=== PATIENT | male | born 1975 | race Caucasian/White ===

== ENCOUNTER 2022-03-16 03:52 | Emergency (ER) | payer MEDICAID, SELFPAY ==
[2022-03-16] VITALS (10 sets, daily range): BP systolic 112–146; BP diastolic 65–97; PULSE 50–83; RESP 18–20; TEMP 36.6–36.7; O2SAT 94–98; BMI 24.3
--- NOTE | 2022-03-16 04:10 | CT_ITS ---
FINAL REPORT CLINICAL HISTORY: RLQ and RUQ pain COMPARISON: March 03, 2022 FINDINGS: CT OF THE ABDOMEN AND PELVIS WITH CONTRAST Axial CT images of the abdomen and pelvis were obtained after the administration of intravenous contrast. Coronal reformatted images were also obtained and reviewed.This study was performed with techniques to keep radiation doses as low as reasonably achievable (ALARA). Individualized dose reduction techniques using automated exposure control or adjustment of mA and/or kV according to the patient's size were employed. Abdomen: There is a 9 mm ground-glass nodule in the left lower lobe.. The heart is normal in size. The liver has an unremarkable appearance, without evidence of mass or biliary ductal dilatation. The gallbladder is present. The spleen is unremarkable. No adrenal mass is present. The pancreas has an unremarkable appearance. The kidneys are normal, without evidence of mass or hydronephrosis. The aorta is normal in caliber. There is no free fluid or adenopathy. There is a small umbilical hernia containing fat only. Pelvis: Postoperative changes are seen involving the right posterior acetabulum. The appendix is normal. The urinary bladder is moderately distended. No inflammatory process is seen. There is no evidence of mass or adenopathy. There is a moderate to large amount of retained stool. There is no evidence of bowel obstruction. There are small inguinal hernias containing fat only. IMPRESSION: 9 mm left lower lobe ground-glass nodule. Moderate to large amount of retained stool. Normal appendix. Moderately distended urinary bladder. Reviewed, Interpreted and Dictated by Lc Samuel III, MD Transcribed by Lawrence Terrell Authenticated and [facility]
[2022-03-16 04:19] LABS: Basophils # 0.2 K/mm3 (0-0.2); Basophils % 1.6 % (0.1-2.0); Eosinophils # 0.5 K/mm3 (0.0-0.4); Eosinophils % 4.5 % (0.1-12.0); Hematocrit 56.6 % (42.0-52.0); Lymphocytes # 1.8 K/mm3 (0.7-4.5); Lymphocytes % 17.6 % (10-50); Mean Corpuscular HGB Conc 33.2 g/dL (31.8-35.4); Mean Corpuscular Hemoglobin 31.1 pg (27.0-31.2); Mean Corpuscular Volume 93.6 fl (80-94); Mean Platelet Volume 8.6 fl (7.4-10.4); Monocytes # 0.6 K/mm3 (0.1-1.0); Monocytes % 6.2 % (1.7-9.3); Neutrophils # 7.3 K/mm3 (1.8-7.8); Neutrophils % 70.1 % (37.0-80.0); Platelet Count 219 K/mm3 (142-424); Red Blood Count 6.05 M/mm3 (4.60-6.20); White Blood Count 10.4 K/mm3 (4.8-10.8)
[2022-03-16 04:24] LABS: Chloride 91 mmol/L (98-107); Hemoglobin 18.8 g/dL (14.1-18.0); Potassium 4.4 mmoL/L (3.5-5.1); Sodium 135 mmol/L (136-145)
--- NOTE | 2022-03-16 04:24 | HMH.EDABDPAI ---
Discharge Plan Disposition Patient Disposition: Home, Self-Care Prescriptions Prescriptions: New pantoprazole [Protonix] 40 mg tablet,delayed release (DR/EC) 40 mg PO DAILY Qty: 30 0RF No Action atorvastatin 40 mg Tablet 40 mg PO HS metformin 1,000 mg Tablet 1,000 mg PO BID lisinopril 10 mg Tablet 10 mg PO DAILY Referrals Follow up/Referrals: Provider,Referral, MD [Primary Care Provider] - See instructions Clinical Impressions Clinical Impression: Abdominal pain, Diabetes mellitus Instructions Patient Instructions: DI for Acute Abdominal Pain Discharge ED Provider: Billy Chandra Abdominal Pain HPI General Chief Complaint: Abdominal Pain Stated Complaint: Stomach Pain Time Seen by Provider: 03/16/22 04:25 Mode of Arrival: Ambulatory Source of Information: Patient, Significant Other and Medical Record Limitations: No Limitations Description of Symptoms (Recalled from ER Triage Doc. by RN): Pt reports RUQ and RLQ abd pain that started early today. Pt describes pain as cramping and stabbing that is constant and rates his pain a 9 out of 10 at its worst. Pt denies N/V/D, fevers, changes in bowel or bladder. History of Present Illness HPI narrative: pt with upper abd pain with nausea w/o blood in stool or melena - pt with pain and seen at [facility] in 03/03- does use etoh and is diabetic - not taking lithium and has not been compliant with meds complaint: abdominal pain Onset (ago): hour(s) Consistency: intermittent Location: RUQ and epigastric Severity: moderate Associated symptoms: nausea Related Data Home Medications Medication Instructions Recorded Confirmed atorvastatin 40 mg tablet 40 mg PO HS Cholesterol 03/16/22 03/16/22 lisinopril 10 mg tablet 10 mg PO DAILY High blood pressure 03/16/22 03/16/22 metformin 1,000 mg tablet 1,000 mg PO BID Diabetes 03/16/22 03/16/22 Previous Rx's Medication Instructions Recorded pantoprazole 40 mg tablet,delayed 40 mg PO DAILY #30 tabs 03/16/22 release (Protonix) Allergies Allergy/AdvReac Type Severity Reaction Status Date / Time No Known Allergies Allergy Verified 03/16/22 04:07 PFSH PFSH Social History Smoking Status: Current every day smoker alcohol intake: current current occupational status: employed Travel in the last 8 weeks: None ROS Obtained: Yes All systems reviewed & no additional complaints except as documented Physical Exam General General appearance: alert Head Head exam: normocephalic Eye Eye exam: Present PERRL and EOMI; Absent scleral icterus or jaundice ENT ENT exam: Present mucous membranes moist Neck Neck exam: Present trachea midline Respiratory Respiratory exam: Present normal lung sounds bilaterally; Absent respiratory distress Cardiovascular Cardiovascular exam: Present regular rate and systolic murmur Abdominal Exam Abdominal exam: Present soft and tenderness; Absent guarding, rebound or rigidity Abdominal tenderness: Present epigastrium and moderate Extremities Exam Extremities exam: Present full ROM Neurological Exam Neurological exam: Present alert, oriented X3 and CN II-XII intact Psychiatric Psychiatric exam: Present normal affect Skin Skin exam: Absent rash Medical Decision Making Medical Records Medical records reviewed: Yes I reviewed the patient's medical records. Vadim Inquiry Pt receiving controlled substance: No Vital Signs: 03/16/22 04:03 03/16/22 04:30 03/16/22 05:00 Temperature 97.8 F Temperature Source Oral Pulse Rate 83 57 L Pulse Rate [Right Radial] 76 Respiratory Rate 18 Blood Pressure 125/73 128/65 Blood Pressure [Right Arm] 126/71 Blood Pressure Mean Blood Pressure Mean [Right Arm] 89 Blood Pressure Source [Right Arm] Automatic Cuff Blood Pressure Position [Right Arm] Sitting 02 Sat by Pulse Oximetry 95 96 94 L Oxygen Delivery Method Room Air 03/16/22 05:30 03/16/22 05:58 03/16/22 06:30 Tempera
[2022-03-16 04:27] LABS: Alanine Aminotransferase 45 U/L (12-78); Alkaline Phosphatase 215 U/L (38-126); Amylase 64 U/L (30-110); Anion Gap 19.4 mEq/L (5-15); Aspartate Amino Transferase 45 U/L (17-59); Bilirubin,Total 0.7 mg/dl (0.2-1.3); Blood Urea Nitrogen 19 mg/dl (9-20); Calcium 9.8 mg/dl (8.4-10.2); Carbon Dioxide 29 mmol/L (22.0-30.0); Creatinine Clearance Estimated 141 mL/min (50-200); Estimated Glomerular Filt Rate 120 ml/min (>60); GFR (African American) 146 ML/MIN (>60); Lipase 156 U/L (23-300)
[2022-03-16 04:28] LABS: Albumin Level 5.3 g/dl (3.5-5.0); Albumin/Globulin Ratio 1.6 (1.1-1.8); Globulin 3.3 g/dL (1.3-3.2); Total Protein,Serum 8.6 g/dl (6.3-8.2)
[2022-03-16 04:33] LABS: C-Reactive Protein 3.9 mg/L (0-4)
[2022-03-16 04:34] LABS: Ethyl Alcohol < 10 mg/dl (0-10)
[2022-03-16 04:36] LABS: Glucose 580 mg/dl (74-100)
--- NOTE | 2022-03-16 04:36 | PC.NURSE ---
Critical glucose reported to Prateek at this time of 580. Awaiting new orders
[2022-03-16 04:58] LABS: Acetone, Serum (Rapid) None Detected (None Detect)
[2022-03-16 05:16] LABS: Hemoglobin A1C 11.4 % (4.0-6.0)
[2022-03-16 05:45] LABS: Troponin I < 0.01 ng/ml (0.00-0.034)
[2022-03-16 05:53] LABS: Microscopic, Urine URINE MICROSCOPIC (MICROSCOPIC)
[2022-03-16 05:57] LABS: Appearance,Urine CLEAR (Clear); Bilirubin,Urine Negative (Negative); Blood, Urine Negative (Negative); Color,Urine YELLOW (Yellow); Glucose,Urine (UA) 3+ (Negative); Ketones,Urine Negative (Negative); Leukocyte Esterase,Urine Negative (Negative); Nitrate,Urine Negative (Negative); PH,Urine 6.5 (5.0-8.5); Protein,Urine Negative (Negative); Specific Gravity, Urine <= 1.005 (1.005-1.030); Urobilinogen,Urine 0.2 EU/dl (0.2)
[2022-03-16 06:00] LABS: Erythrocyte Sedimentation Rate 1 mm/hr (0-15)
[2022-03-16 06:23] LABS: Bacteria,Urine Trace /lpf; WBC,Urine Occasional #/hpf (0-3)
--- NOTE | 2022-03-16 07:35 | PC.NURSE ---
FSBS 392, PT UPDATED ON POC. NO NEEDS AT THIS TIME
[2022-03-16 07:41] LABS: POC Glucose,Bedside 392 (70-110)
--- NOTE | 2022-03-16 08:34 | PC.NURSE ---
DR. SULLIVAN AT BEDSIDE TO DISCUSS POC AND DISCHARGE
== END 2022-03-16 08:40 | disposition home or self-care (01) ==
PROVIDERS: Emergency Provider Emergency Medicine
DX: R10.11 Right upper quadrant pain (principal); R10.31 Right lower quadrant pain; R10.13 Epigastric pain; R11.0 Nausea; E11.9 Type 2 diabetes mellitus without complications; F17.200 Nicotine dependence, unspecified, uncomplicated; Z79.84 Long term (current) use of oral hypoglycemic drugs; Z79.899 Other long term (current) drug therapy
CPT/HCPCS: 74177; 80053; 81001; 82009; 82150; 82962; 83036; 83690; 84484; 85025; 85651; 86140; 96361; 96374; 96375; 99285; Q9967

== ENCOUNTER 2022-04-06 21:20 | Emergency (ER) | payer MEDICAID, SELFPAY ==
[2022-04-06 21:22] VITALS: BP 137/91; PULSE 88; RESP 16; TEMP 37; O2SAT 97; BMI 25.2
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
[2022-04-06 22:00] VITALS: BP 119/68; PULSE 88; O2SAT 96
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
[2022-04-06 23:01] LABS: INR 0.86 (0.9-1.1); Prothrombin Time 9.4 seconds (10.1-12.5)
[2022-04-06 23:07] LABS: Basophils # 0.1 K/mm3 (0-0.2); Basophils % 1.2 % (0.1-2.0); Eosinophils # 0.4 K/mm3 (0.0-0.4); Eosinophils % 4.1 % (0.1-12.0); Hematocrit 51.7 % (42.0-52.0); Hemoglobin 17.2 g/dL (14.1-18.0); Lymphocytes # 1.8 K/mm3 (0.7-4.5); Lymphocytes % 18.1 % (10-50); Mean Corpuscular HGB Conc 33.4 g/dL (31.8-35.4); Mean Corpuscular Hemoglobin 30.6 pg (27.0-31.2); Mean Corpuscular Volume 91.6 fl (80-94); Mean Platelet Volume 8.9 fl (7.4-10.4); Monocytes # 0.5 K/mm3 (0.1-1.0); Monocytes % 4.9 % (1.7-9.3); Neutrophils % 71.7 % (37.0-80.0); Platelet Count 253 K/mm3 (142-424); Red Blood Count 5.64 M/mm3 (4.60-6.20); Red Cell Distribution Width 13.3 % (11.5-17.5); White Blood Count 9.7 K/mm3 (4.8-10.8)
[2022-04-06 23:10] LABS: Chloride 97 mmol/L (98-107); Sodium 133 mmol/L (136-145)
[2022-04-06 23:12] LABS: Blood Urea Nitrogen 13 mg/dl (9-20); Creatinine Clearance Estimated 146 mL/min (50-200); Estimated Glomerular Filt Rate 120 ml/min (>60); GFR (African American) 146 ML/MIN (>60)
[2022-04-06 23:13] LABS: Alanine Aminotransferase 45 U/L (12-78); Albumin Level 4.3 g/dl (3.5-5.0); Albumin/Globulin Ratio 1.7 (1.1-1.8); Alkaline Phosphatase 182 U/L (38-126); Aspartate Amino Transferase 47 U/L (17-59); Bilirubin,Total 0.3 mg/dl (0.2-1.3); Calcium 8.5 mg/dl (8.4-10.2); Carbon Dioxide 23 mmol/L (22.0-30.0); Globulin 2.5 g/dL (1.3-3.2); Lipase 332 U/L (23-300); Total Protein,Serum 6.8 g/dl (6.3-8.2)
[2022-04-06 23:18] LABS: Glucose 542 mg/dl (74-100)
[2022-04-06 23:25] LABS: Troponin I < 0.01 ng/ml (0.00-0.034)
[2022-04-06 23:30] LABS: VBG Base Excess -5.7 mmol/L (-2.4-2.3); VBG HCO3 18.2 mmol/L (23-30); VBG Oxygen Saturation 99.1 % (50-70); VBG PCO2 26.2 mmol/L (35-51); VBG PH 7.46 mmol/L (7.31-7.41)
[2022-04-07 01:30] LABS: POC Glucose,Bedside 359 (70-110)
[2022-04-07 02:00] VITALS: BP 119/68; PULSE 88; RESP 16; TEMP 37; O2SAT 98; BMI 25.2
== END 2022-04-07 02:00 | disposition home or self-care (01) ==
PROVIDERS: Emergency Provider Emergency Medicine
DX: M25.511 Pain in right shoulder (principal); V49.9XXA Car occupant (driver) (passenger) injured in unspecified traffic accident, initial encounter; E11.65 Type 2 diabetes mellitus with hyperglycemia; Z79.84 Long term (current) use of oral hypoglycemic drugs; Z79.899 Other long term (current) drug therapy
CPT/HCPCS: 36415; 70450; 70496; 70498; 71045; 71275; 72125; 72128; 72131; 73000; 73030; 74174; 80053; 82803; 82962; 83690; 84484; 85025; 85610; 85730; 86850; 96365; 96366; 96375; 99285; J2405; Q9967

== ENCOUNTER 2023-03-12 19:19 | Emergency (ER) | payer MEDICAID, SELFPAY ==
[2023-03-12 19:21] VITALS: BP 149/80; PULSE 81; RESP 20; TEMP 36.8; O2SAT 99; BMI 23.6
--- NOTE | 2023-03-12 19:32 | CT_ITS ---
PROCEDURE INFORMATION: Exam: CT Head Without Contrast Exam date and time: 03/12/2023 7:39 PM Age: 47 years old Clinical indication: Injury or trauma; Fall; Additional info: Fall, facial pain/injury, jaw malocclusion TECHNIQUE: Imaging protocol: Computed tomography of the head without contrast. Radiation optimization: All CT scans at this facility use at least one of these dose optimization techniques: automated exposure control; mA and/or kV adjustment per patient size (includes targeted exams where dose is matched to clinical indication); or iterative reconstruction. REPORTING DATA: Count of CT and Cardiac NM exams in prior 12 months: This patient has received 9 known CTs and 0 known cardiac nuclear medicine studies in the 12 months prior to the current study. COMPARISON: CT HEAD/BRAIN WO CON 04/06/2022 11:04 PM FINDINGS: Brain: No acute intracranial hemorrhage, midline shift or mass effect. Cerebral ventricles: Similar asymmetric prominence of the right lateral ventricle. Paranasal sinuses: Visualized sinuses are unremarkable. No fluid levels. Mastoid air cells: Minimal chronic right mastoid effusion. 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 Bones/joints: Unremarkable. No acute fracture. Soft tissues: Small midline parietal vertex scalp contusion. IMPRESSION: Small midline parietal vertex scalp contusion. No acute intracranial findings or calvarial fracture.
--- NOTE | 2023-03-12 19:32 | CT_ITS ---
PROCEDURE INFORMATION: Exam: CT Cervical Spine Without Contrast Exam date and time: 03/12/2023 7:44 PM Age: 47 years old Clinical indication: Neck pain; Additional info: Fall, facial pain/injury, jaw malocclusion TECHNIQUE: Imaging protocol: Computed tomography of the cervical spine without contrast. Radiation optimization: All CT scans at this facility use at least one of these dose optimization techniques: automated exposure control; mA and/or kV adjustment per patient size (includes targeted exams where dose is matched to clinical indication); or iterative reconstruction. REPORTING DATA: Count of CT and Cardiac NM exams in prior 12 months: This patient has received 9 known CTs and 0 known cardiac nuclear medicine studies in the 12 months prior to the current study. COMPARISON: CT CERVICAL SPINE WO CON 04/06/2022 11:06 PM FINDINGS: Bones/joints: Cervical vertebrae normal in height. Reversal of normal cervical lordosis centered at C5-C6. Maintained craniocervical junction. No acute fracture. Multilevel degenerative changes. Varying degrees of neural foraminal narrowing most severe on the right at C3-C4 and on the left at C6-C7. Minimal C4-C5, C5-C6 and C6-C7 spinal canal stenosis. Lungs: Lung apices are without acute findings. Soft tissues: Unremarkable. IMPRESSION: No acute osseous findings of the cervical spine.
--- NOTE | 2023-03-12 19:32 | CT_ITS ---
PROCEDURE INFORMATION: Exam: CT Maxillofacial Without Contrast Exam date and time: 03/12/2023 7:41 PM Age: 47 years old Clinical indication: Face pain; Additional info: Fall, facial pain/injury, jaw malocclusion TECHNIQUE: Imaging protocol: Computed tomography of the face without contrast. Radiation optimization: All CT scans at this facility use at least one of these dose optimization techniques: automated exposure control; mA and/or kV adjustment per patient size (includes targeted exams where dose is matched to clinical indication); or iterative reconstruction. REPORTING DATA: Count of CT and Cardiac NM exams in prior 12 months: This patient has received 9 known CTs and 0 known cardiac nuclear medicine studies in the 12 months prior to the current study. COMPARISON: CT HEAD/BRAIN WO CON 03/12/2023 7:39 PM FINDINGS: Orbital cavities: Orbits are normal. Globes are unremarkable. Bones/joints: No acute fracture. Paranasal sinuses: Minimal bilateral maxillary sinus mucosal thickening. No air-fluid levels. Soft tissues: Unremarkable. IMPRESSION: No acute osseous findings.
--- NOTE | 2023-03-12 19:32 | HMH.EDGENADL ---
Discharge Plan Disposition Patient Disposition: Home, Self-Care Condition: Good Prescriptions Prescriptions: New chlorhexidine gluconate [Peridex] 0.12 % mouthwash 15 ml buccal BID Qty: 1200 0RF No Action pantoprazole 40 mg tablet,delayed release (DR/EC) See Rx Instructions .ROUTE .COMPLEX Qty: 30 0RF Dose Instruction: TAKE 1 TABLET ORALLY DAILY Rx Instructions: TAKE 1 TABLET ORALLY DAILY atorvastatin 40 mg Tablet 40 mg PO HS metformin 1,000 mg Tablet 1,000 mg PO BID lisinopril 10 mg Tablet 10 mg PO DAILY Referrals Follow up/Referrals: Provider,Referral, MD [Primary Care Provider] - See instructions Activity Restrictions/Add. Instructions Additional Instructions/Restrictions: You were evaluated in the emergency department today. Please supervisor opening and picking your prescription for mouthwash at the pharmacy and use twice a day as prescribed. Take Tylenol and ibuprofen at home as needed for pain. Follow-up with your dentist for your injury to your tooth. Return to the emergency department for any new or worsening symptoms. Clinical Impressions Clinical Impression: Loose tooth due to trauma Laceration of labial mucosa without complication Qualifiers: Encounter type: initial encounter Qualified Code(s): S01.512A - Laceration without foreign body of oral cavity, initial encounter Discharge ED Provider: Gabriela Wooten General Adult HPI General Chief complaint: Fall Stated complaint: AO 03/11 fell facial injures Time Seen by Provider: 03/12/23 19:26 Mode of Arrival: Ambulatory Source of Information: Patient Limitations: No Limitations Description of Symptoms (Recalled from ER Triage Doc. by RN): pt states he got tripped up in the yard last night and fell from a standing position, this approx happened at 2300 and is complaining of jaw pain and has an abrasion under left eye History of Present Illness HPI narrative: This patient is a 47-year-old male with a history of hypertension and diabetes presenting to the emergency department for evaluation with concern for facial pain. He reports that last night around 11 PM, he was walking when he tripped and had a mechanical ground-level fall from standing. He landed on his face. He complains that he suffered a laceration to the inside of his left lip and also feels like his upper left central incisor is loose. He also feels jaw malocclusion when he bites down, especially on the left side. He did not lose consciousness when this happened he denies any other concerns. He denies any use of anticoagulation. He is otherwise been fine since. He only came in because family urged him to today. No other concerns noted at this time. Related Data Home Medications Medication Instructions Recorded Confirmed atorvastatin 40 mg tablet 40 mg PO HS Cholesterol 03/16/22 03/16/22 lisinopril 10 mg tablet 10 mg PO DAILY High blood pressure 03/16/22 03/16/22 metformin 1,000 mg tablet 1,000 mg PO BID Diabetes 03/16/22 03/16/22 Previous Rx's Medication Instructions Recorded pantoprazole 40 mg tablet,delayed See Rx Instructions .Route 04/12/22 release .COMPLEX #30 tabs chlorhexidine gluconate 0.12 % 15 ml buccal BID #1,200 mL 03/12/23 mouthwash (Peridex) Allergies Allergy/AdvReac Type Severity Reaction Status Date / Time No Known Allergies Allergy Verified 03/16/22 04:07 [facility] Disclaimer: The information contained in this section may have been updated after the patient was seen, as this information can be updated by other users. Social History Smoking Status: Current every day smoker alcohol intake: current current occupational status: employed Travel in the last 8 weeks: None ROS Obtained: Yes All systems reviewed & no additional complaints except as documented Physical Exam General General appearance: alert and in no apparent distress Head Head exam: other (Abr
[2023-03-12 20:53] VITALS: BP 144/94; PULSE 68; RESP 16; TEMP 36.7; O2SAT 96
== END 2023-03-12 20:56 | disposition home or self-care (01) ==
PROVIDERS: Emergency Provider Emergency Medicine
DX: S01.512A Laceration without foreign body of oral cavity, initial encounter (principal); S03.2XXA Dislocation of tooth, initial encounter; I10 Essential (primary) hypertension; E11.9 Type 2 diabetes mellitus without complications; W01.0XXA Fall on same level from slipping, tripping and stumbling without subsequent striking against object, initial encounter; F17.200 Nicotine dependence, unspecified, uncomplicated
CPT/HCPCS: 70450; 70486; 72125; 99285

== ENCOUNTER 2023-06-08 07:25 | Emergency (ER) | payer MEDICAID, SELFPAY ==
[2023-06-08 07:26] VITALS: BP 118/81; PULSE 84; RESP 18; TEMP 36.3; O2SAT 97; BMI 22.9
[2023-06-08 07:45] VITALS: BMI 22.9
--- NOTE | 2023-06-08 07:46 | ED_ITS ---
Discharge Plan Disposition Patient Disposition: Home, Self-Care Condition: Good Prescriptions Prescriptions: New insulin glargine [Lantus Solostar U-100 Insulin] 100 unit/mL (3 mL) insulin pen 20 unit SQ HS Qty: 15 0RF (DME) insulin syr/ndl U100 half colton 0.3 mL 30 gauge x 1/2 syringe See Rx Instructions .Route Qty: 100 0RF Rx Instructions: As directed ondansetron 4 mg tablet,disintegrating 4 mg PO Q6H PRN (Reason: nausea and vomiting) Qty: 30 0RF No Action pantoprazole 40 mg tablet,delayed release (DR/EC) See Rx Instructions .ROUTE .COMPLEX Qty: 30 0RF Dose Instruction: TAKE 1 TABLET ORALLY DAILY Rx Instructions: TAKE 1 TABLET ORALLY DAILY atorvastatin 40 mg Tablet 40 mg PO HS metformin 1,000 mg Tablet 1,000 mg PO BID lisinopril 10 mg Tablet 10 mg PO DAILY chlorhexidine gluconate [Peridex] 0.12 % mouthwash 15 ml buccal BID Qty: 1200 0RF Referrals Follow up/Referrals: Provider,Referral, MD [Primary Care Provider] - See instructions Clinical Impressions Clinical Impression: Hyperglycemia Diarrhea Qualifiers: Diarrhea type: unspecified type Qualified Code(s): R19.7 - Diarrhea, unspecified Instructions Patient Instructions: DI for Diarrhea and Traveler's Diarrhea -- Adult, DI for Diarrhea and Traveler's Diarrhea -- Child, DI for Nausea -- Adult, DI for Nausea -- Child Discharge ED Provider: Fidencio Meng General Adult HPI General Chief complaint: Nausea/Vomiting/Diarrhea Stated complaint: vomiting, diarrhea Time Seen by Provider: 06/08/23 07:31 History of Present Illness HPI narrative: This 47-year-old male with a history of multiple medical conditions including diabetes on insulin presents to the ER with concerns of diarrhea. Patient states he started having diarrhea 2 days ago after [place] [employer]. His spouse had the same symptoms with the same onset. They are unsure of anyone that they were exposed to who may have been ill or any improperly prepared food. Patient states he feels like he could vomit but has not yet had any emesis. He has been fighting fevers and chills but has not taken a temperature at home. He has not taken any medications for symptoms. Diarrhea has been nonbloody, nonmelanotic. Review of systems otherwise negative. Patient smokes but denies alcohol or illicit drug use. Related Data Home Medications Medication Instructions Recorded Confirmed atorvastatin 40 mg tablet 40 mg PO HS Cholesterol 03/16/22 03/16/22 lisinopril 10 mg tablet 10 mg PO DAILY High blood pressure 03/16/22 03/16/22 metformin 1,000 mg tablet 1,000 mg PO BID Diabetes 03/16/22 03/16/22 Previous Rx's Medication Instructions Recorded pantoprazole 40 mg tablet,delayed See Rx Instructions .Route 04/12/22 release .COMPLEX #30 tabs chlorhexidine gluconate 0.12 % 15 ml buccal BID #1,200 mL 03/12/23 mouthwash (Peridex) insulin glargine 100 unit/mL (3 20 unit (0.2 mL) SQ HS #15 mL 06/08/23 mL) subcutaneous pen (Lantus Solostar U-100 Insulin) insulin syr/ndl U100 half colton 0.3 #100 ea 06/08/23 mL 30 gauge x 1/2 ondansetron 4 mg disintegrating 4 mg PO Q6H PRN nausea and 06/08/23 tablet vomiting #30 tabs Allergies Allergy/AdvReac Type Severity Reaction Status Date / Time No Known Allergies Allergy Verified 03/16/22 04:07 [facility] Disclaimer: The information contained in this section may have been updated after the patient was seen, as this information can be updated by other users. Social History Smoking Status: Current every day smoker alcohol intake: current current occupational status: employed Travel in the last 8 weeks: None ROS Obtained: Yes All systems reviewed & no additional complaints except as documented Constitutional Constitutional: Reports chills, Reports fever(s), Denies headache(s) and Denies weakness Eyes Eyes: Denies change in vision ENT Ears, Nose, Mouth, and Throat: Denies dizziness, Denies headache(s), Denies nasal congestion and Denies sore throat Cardiovascular Cardiovascular: Denies chest pain, Denies dyspnea and Denies leg edema Respiratory Respiratory: Denies cough and Denies dyspnea Gastrointestinal Gastrointestingal: Reports diarrhea and nausea; Denies abdominal pain, constipation, hematochezia, melena or vomiting Genitourinary Male Genitourinary: Denies difficulty urinating Musculoskeletal Musculoskeletal: Denies arthralgias, Denies myalgias, Denies numbness and Denies tingling Integumentary/Breasts Skin/Breast: Denies change in pigmentation Neurologic Neurologic: Denies dizziness, Denies headache(s), Denies numbness, Denies tingl ing and Denies weakness Physical Exam General General appearance: alert and in no apparent distress Head Head exam: atraumatic and normocephalic Eye Eye exam: Present PERRL and EOMI ENT ENT exam: Present mucous membranes moist Neck Neck exam: Present normal inspection and full ROM Chest Chest inspection: Present symmetric chest wall rise Respiratory Respiratory exam: Present normal lung sounds bilaterally; Absent respiratory di stress, wheezes or stridor Cardiovascular Cardiovascular exam: Present regular rate and normal rhythm Abdominal Exam Abdominal exam: Present soft; Absent distention, tenderness, guarding or rebound Extremities Exam Extremities exam: Present full ROM Neurological Exam Neurological exam: Present alert, oriented X3, CN II-XII intact and normal gait; Absent motor sensory deficit Psychiatric Psychiatric exam: Present normal affect and normal mood Skin Skin exam: Present warm and dry Medical Decision Making Vadim Inquiry Pt receiving controlled substance: No Vital Signs: 06/08/23 07:26 06/08/23 08:26 Temperature 97.4 F L Temperature Source Oral Pulse Rate [Left Radial] 84 Respiratory Rate 18 Blood Pressure 124/74 Blood Pressure [Right Arm] 118/81 Blood Pressure Mean [Right Arm] 93 Blood Pressure Source [Right Arm] Automatic Cuff Blood Pressure Position [Right Arm] Sitting 02 Sat by Pulse Oximetry 97 Oxygen Delivery Method Room Air Lab Data Lab Results 06/08/23 07:55: WBC 7.8, RBC 5.99, Hgb 17.8, Hct 49.7, MCV 82.9, MCH 29.7, MCHC 35.9 H, RDW 13.3, Plt Count 254, MPV 8.1, Neut % (Auto) 59.6, Lymph % (Auto) 26.4, [place] % (Auto) 4.4, Eos % (Auto) 8.7, Baso % (Auto) 0.9, Neut # (Auto) 4.7, Lymph # (Auto) 2.1, [place] # (Auto) 0.3, Eos # (Auto) 0.7 H, Baso # (Auto) 0.1, Sodium 132 L, Potassium 4.1, Chloride 97 L, Carbon Dioxide 22, Anion Gap 17.1 H, BUN 15, Creatinine 0.80, Estimated Creat Clear 115, Estimated GFR 103, Est GFR ( Amer) 124, Glucose 366 H, Calcium 8.9, Total Bilirubin 0.7, AST 61 H, ALT 64, Alkaline Phosphatase 166 H, Total Protein 7.7, Albumin 4.3, Globulin 3.4 H, Albumin/Globulin Ratio 1.3 06/08/23 07:55 06/08/23 07:55 Orders (Tests/Meds): ED MEDICATIONS Generic Name Dose Route Start Last Admin Trade Name Freq PRN Reason Stop Dose Admin Lactated Ringer's 1,000 mls @ 999 mls/hr 06/08/23 07:50 06/08/23 07:58 Lactated Ringer's 1000 Ml Bag IV 06/08/23 08:50 999 mls/hr .Q1H1M ONE Administration Discontinued Medications Generic Name Dose Route Start Last Admin Trade Name Freq PRN Reason Stop Dose Admin Acetaminophen 1,000 mg 06/08/23 07:45 06/08/23 07:57 Acetaminophen 500mg Tab PO 06/08/23 07:46 1,000 mg ONCE ONE Administration Ondansetron HCl 4 mg 06/08/23 07:45 06/08/23 07:58 Ondansetron 4mg Odt SL 06/08/23 07:46 4 mg ONCE ONE Administration ORDERS Category Date Time Status CBC w/Auto Diff [Complete Blood Count Auto Diff] Stat Lab 06/08/23 07:55 Completed CMP [Comprehensive Metabolic Panel] Stat Lab 06/08/23 07:55 Completed Medical Decision Narrative: In summary, this 47year old male with diabetes on insulin presents to the emergency department today with diarrhea, nausea. On initial evaluation patient is hemodynamically stable, afebrile, resting comfortably, abdominal exam benign, patient appears comfortable. Differential diagnosis includes but is not limited to electrolyte abnormality, dehydration, viral syndrome, I considered bowel obstruction however patient presented with his spouse who has identical symptoms so I have significantly lower suspicion for this. I also considered ACS however patient presented with his spouse who has identical symptoms and patient does not have any chest pain or difficulty breathing. He also started with diarrhea and not nausea/vomiting. I have also considered DKA, HHS. I have lower suspicions for these however patient does have increased risk because he is a a diabetic on insulin and reporting being on glimepiride which increases risk of even euglycemic DKA. These are comorbidities of his current condition. Based on these concerns, I ordered basic labs, IV fluids, symptom control with Zofran and Tylenol. Labs personally reviewed demonstrate hyperglycemia, only slightly elevated anion gap at 17, no leukocytosis or anemia, sodium slightly low at 132, chloride 97, potassium 4.1. Patient is receiving IV fluid bolus. I am not concerned for DKA or HHS. On reassessment patient symptoms have improved. He has tolerated oral intake. He did provide additional information that he and his spouse are essentially homeless at this time and he has not had access to his insulin regularly. This is a social determinant of health and significantly impacts his ability to care for his underlying medical conditions. He will have access to his NovoLog tomorrow however I prescribed Lantus for baseline management today. I have also prescribed Zofran. Patient was given instructions on symptomatic management, follow up instructions, and return precautions for the emergency department. Patient indicated understanding and was discharged in stable condition. Critical Care Critical Care Time Critical Care Time: No
[2023-06-08] MEDS: ACETAMINOPHEN 500MG TAB 1000 MG PO (07:57)
[2023-06-08] MEDS: LACTATED RINGERS 1000ML 1,000 ML 999 ML IV (07:58)
[2023-06-08] MEDS: ONDANSETRON 4MG ODT 4 MG SL (07:58)
[2023-06-08 08:07] LABS: Chloride 97 mmol/L (98-107); Potassium 4.1 mmoL/L (3.5-5.1); Sodium 132 mmol/L (136-145)
[2023-06-08 08:09] LABS: Alanine Aminotransferase 64 U/L (12-78); Aspartate Amino Transferase 61 U/L (17-59); Blood Urea Nitrogen 15 mg/dl (9-20); Creatinine Clearance Estimated 115 mL/min (50-200); Estimated Glomerular Filt Rate 103 ml/min (>60); GFR (African American) 124 ML/MIN (>60)
[2023-06-08 08:10] LABS: Albumin Level 4.3 g/dl (3.5-5.0); Albumin/Globulin Ratio 1.3 (1.1-1.8); Alkaline Phosphatase 166 U/L (38-126); Anion Gap 17.1 mEq/L (5-15); Bilirubin,Total 0.7 mg/dl (0.2-1.3); Calcium 8.9 mg/dl (8.4-10.2); Carbon Dioxide 22 mmol/L (22.0-30.0); Globulin 3.4 g/dL (1.3-3.2); Glucose 366 mg/dl (74-100); Total Protein,Serum 7.7 g/dl (6.3-8.2)
[2023-06-08 08:13] LABS: Basophils # 0.1 K/mm3 (0-0.2); Basophils % 0.9 % (0.1-2.0); Eosinophils # 0.7 K/mm3 (0.0-0.4); Eosinophils % 8.7 % (0.1-12.0); Hematocrit 49.7 % (42.0-52.0); Hemoglobin 17.8 g/dL (14.1-18.0); Lymphocytes # 2.1 K/mm3 (0.7-4.5); Lymphocytes % 26.4 % (10-50); Mean Corpuscular HGB Conc 35.9 g/dL (31.8-35.4); Mean Corpuscular Hemoglobin 29.7 pg (27.0-31.2); Mean Corpuscular Volume 82.9 fl (80-94); Mean Platelet Volume 8.1 fl (7.4-10.4); Monocytes # 0.3 K/mm3 (0.1-1.0); Monocytes % 4.4 % (1.7-9.3); Neutrophils # 4.7 K/mm3 (1.8-7.8); Neutrophils % 59.6 % (37.0-80.0); Platelet Count 254 K/mm3 (142-424); Red Blood Count 5.99 M/mm3 (4.60-6.20); Red Cell Distribution Width 13.3 % (11.5-17.5); White Blood Count 7.8 K/mm3 (4.8-10.8)
[2023-06-08 08:26] VITALS: BP 124/74
[2023-06-08 09:01] VITALS: BP 130/82; PULSE 67; RESP 15; TEMP 36.3; O2SAT 97
== END 2023-06-08 09:11 | disposition home or self-care (01) ==
PROVIDERS: Emergency Provider Emergency Medicine
DX: R19.7 Diarrhea, unspecified; F17.200 Nicotine dependence, unspecified, uncomplicated; E11.65 Type 2 diabetes mellitus with hyperglycemia
CPT/HCPCS: 80053; 85025; 96360; 99284

== ENCOUNTER 2023-09-18 18:26 | Emergency (ER) | payer MEDICAID, SELFPAY ==
[2023-09-18 18:27] VITALS: BP 129/89; PULSE 95; RESP 18; TEMP 37; O2SAT 96; BMI 22.9
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
--- NOTE | 2023-09-18 18:39 | PC.NURSE ---
Jamison BOURNE at BS for pt eval
--- NOTE | 2023-09-18 18:42 | PC.NURSE ---
Dr. Hooper at BS for pt eval
[2023-09-18] MEDS: SULFA/TRIMETHOPRIM 1 TABLET 1 EACH PO (19:14)
[2023-09-18] MEDS: diphenhydrAMINE 50MG CAPSULE 50 MG PO (19:14)
[2023-09-18] MEDS: cephALEXin 500MG CAPSULE 500 MG PO (19:14)
[2023-09-18] MEDS: ACETAMINOPHEN 500MG TAB 1000 MG PO (19:14)
[2023-09-18 19:19] VITALS: BP 129/110; PULSE 87; RESP 18; TEMP 37; O2SAT 97
== END 2023-09-18 19:20 | disposition home or self-care (01) ==
PROVIDERS: Emergency Provider Student in an Organized Health Care Education/Training Program; PCP Internal Medicine
DX: L03.114 Cellulitis of left upper limb (principal); F17.210 Nicotine dependence, cigarettes, uncomplicated; F20.9 Schizophrenia, unspecified; Z59.00 Homelessness unspecified
CPT/HCPCS: 99283

== ENCOUNTER 2023-10-05 03:25 | Emergency (ER) | payer MEDICAID, SELFPAY ==
[2023-10-05 03:27] VITALS: BP 139/96; PULSE 104; RESP 20; TEMP 37.1; O2SAT 98; BMI 22.9
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
[2023-10-05 03:57] VITALS: BP 139/96; PULSE 94; RESP 20; TEMP 37.1; O2SAT 98
== END 2023-10-05 04:02 | disposition home or self-care (01) ==
PROVIDERS: Emergency Provider Emergency Medicine; PCP Internal Medicine
DX: H92.01 Otalgia, right ear (principal); F17.210 Nicotine dependence, cigarettes, uncomplicated; E11.40 Type 2 diabetes mellitus with diabetic neuropathy, unspecified; Z79.4 Long term (current) use of insulin; Z79.84 Long term (current) use of oral hypoglycemic drugs
CPT/HCPCS: 99282

== ENCOUNTER 2023-10-20 16:13 | Emergency (ER) | payer MEDICAID, SELFPAY ==
--- OUTSIDE RECORDS SUMMARY | 2023-10-20 16:18 | XMS_ITS | Continuity of Care Document ---
Author Name Unknown Organization [facility] o Address [address] [place] [address] Phone Care Team Providers Care Supervisor Contingents Name Role Phone Paresh Anderson MD Unavailable Unavailable Procedures Procedure Date Office/outpatient visit,[facility] 2021 X-ray exam lower spine 2-3 views 2021 X-RAY EXAM HIP UNI 2-3 VIEWS Advance Directives Directive Yes / No Effective Date File Name No Information Encounters Encounter Description Practice Location Reason(s) For Visit Diagnoses Date Provider Providers Copied on Encounter [facility] [place] [place], [address], tel:[phone] No Information 2 Justin Yoder. [address], [place], [id number] . tel:[phone] Referring Provider: [place], [address] . tel:[phone] Office/outpat ient visit,[facility], [facility] [place] [place], [address], tel:[phone] [facility] Pain in right hip Jul- 2 Justin Yoder. [address], [place], [id number] . tel:[phone] Referring Provider: Buck Villa E [facility] [place], [address] . tel:[phone] Family History Family Member Type Diagnosis Age At Onset No Information Payers Payer name Insurance type Covered alliance party ID Authorlidiaa ticamilla(s) [employer] [place] Medicaid [id number] Social History Type Description Quantity Date Captured Comments Sex Male Smoking Status No Information Chief Complaint And Reason For Visit No Information Reason For Referral Reason For Referral No Information Plan Of Treatment Date Type Action Status Future Order: Radiology Order MR I Pelvis W Contrast ([id number]), Ordered on: Ordered History Of Present Illness Encounter Date Complaint History Of Prese nt Illness No Information Functional Status Date Functional Assessmen t No Information Instructions Date Instruction Additional Infor mation No Information Assessments Type Assessment Date No Information Patient Care Teams Name Effective Dates (start - stop) Status Members No Information
[2023-10-20 16:40] VITALS: BP 125/78; PULSE 69; RESP 18; TEMP 36.8; O2SAT 96; BMI 22.3
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
[2023-10-20 17:03] LABS: UTC Strep Screen (Rapid) Negative (Negative)
--- NOTE | 2023-10-20 17:33 | PC.NURSE ---
Sent covid to lab via tube system
[2023-10-20 17:34] VITALS: BP 125/78; PULSE 69; RESP 18; TEMP 36.9; O2SAT 96
== END 2023-10-20 17:33 | disposition home or self-care (01) ==
PROVIDERS: Emergency Provider Nurse Practitioner Family
DX: J02.9 Acute pharyngitis, unspecified (principal); R05.9 Cough, unspecified; R09.81 Nasal congestion; B34.9 Viral infection, unspecified
CPT/HCPCS: 87635; 87880; 99204; 99212; G0463